=== PATIENT | male | born 1965 | race Caucasian/White ===

== ENCOUNTER → 2018-04-20 | Outpatient (CLI) | payer OTHER | LOC: COL.RAD 09:00 | DX: C25.2 Malignant neoplasm of tail of pancreas (principal); C78.7 Secondary malignant neoplasm of liver and intrahepatic bile duct; Z87.19 Personal history of other diseases of the digestive system ==

== ENCOUNTER 2018-04-23 14:26 | Inpatient (IN) | payer OTHER ==
[~2018-04-23] VITALS: Ht 188 cm; Wt 78.1 kg
[2018-04-23] VITALS (164 sets, daily range): BP systolic 84–137; BP diastolic 55–87; PULSE 75–95; TEMP 97.5–97.7; O2SAT 87–100
[2018-04-23 14:54] LABS: HEMOGLOBIN 12.7 g/dl (13.5-18.0); MEAN CELL VOLUME 80 fl (80.0-100.0); MEAN CORPUSCULAR HEMOGLOBIN 28 pg (27.0-31.0); MEAN CORPUSCULAR HGB CONC 35 g/dl (33.0-37.0); PLATELET COUNT 63 K/mm3 (130-400); RED BLOOD COUNT 4.55 M/mm3 (4.20-5.60)
[2018-04-23 15:05] LABS: ALANINE AMINOTRANSFERASE 548 U/L (21-72); ALBUMIN 2.7 gm/dL (3.5-5.0); ALKALINE PHOSPHATASE 415 U/L (50-136); ANION GAP 16 mmol/L (7-16); AST,SGOT 268 U/L (15-37); CALCIUM 8.1 mg/dL (8.4-10.2); CARBON DIOXIDE 15 mmol/L (22-30); CHLORIDE 100 mmol/L (98-107); GLUCOSE 166 mg/dL (74-106); MAGNESIUM 3.8 mg/dL (1.6-2.3); SODIUM 130 mmol/L (137-145); TOTAL PROTEIN 5.7 gm/dL (6.4-8.2)
[2018-04-23 15:07] LABS: HEMATOCRIT 36.3 % (42.0-52.0); LIPASE 27 U/L (23-300)
[2018-04-23 15:10] LABS: CREATININE, serum 3.67 mg/dL (0.66-1.25); INR 1.6 (0.8-3.0); PROTHROMBIN TIME 17.8 SECONDS (9.7-12.8)
[2018-04-23 15:12] LABS: BILIRUBIN,TOTAL 27.5 mg/dL (0.0-1.0)
[2018-04-23 15:13] LABS: BLOOD UREA NITROGEN 128 mg/dL (9-20); PHOSPHOROUS 11.9 mg/dL (2.5-4.5)
[2018-04-23 15:21] LABS: ANISOCYTOSIS 3+; BAND 13 % (0-10); LYMPHOCYTE 24 % (20.0-51.0); MICROCYTOSIS 2+; NEUTROPHILS 63 % (42.0-75.2); NUCLEATED RED BLOOD CELL 1 (0-6); TROPONIN-I < 0.012 ng/mL (0.000-0.034)
[2018-04-23 15:22] LABS: HYPOCHROMIA 2+; PLATELET ESTIMATE DECREASED (NORMAL); TARGET CELLS 2+
[2018-04-23] MEDS ORDERED: MEGACE 40MG40 MG/TAB PO (16:09)
[2018-04-23] MEDS ORDERED: LIORESAL 1010 MG/TAB PO (16:09)
[2018-04-23] MEDS ORDERED: ROXICODONE 55 MG/TAB PO (16:10)
[2018-04-23] MEDS ORDERED: MEGACE ORAL40 MG/ML PO (16:10)
[2018-04-23] MEDS ORDERED: NORCO 325 MG-51 TAB PO (16:11)
[2018-04-23] MEDS ORDERED: ZOFRAN8 MG PO (16:11)
[2018-04-23] MEDS ORDERED: ULTRAM 50MG TAB50 MG PO (16:12)
[2018-04-23] MEDS ORDERED: DECADRON 4MG TAB4 MG PO (16:12)
[2018-04-23] MEDS ORDERED: XANAX 0.5MG0.5 MG PO (16:12)
[2018-04-23] MEDS ORDERED: LOTENSIN20 MG PO (16:13)
[2018-04-23 17:54] LABS: ANION GAP 11 mmol/L (7-16); BLOOD UREA NITROGEN 118 mg/dL (9-20); CALCIUM 7.6 mg/dL (8.4-10.2); CHLORIDE 108 mmol/L (98-107); GLUCOSE 140 mg/dL (74-106); SODIUM 133 mmol/L (137-145)
[2018-04-23 17:57] LABS: COLLECTION METHOD CLEAN CATCH
[2018-04-23 17:59] LABS: CARBON DIOXIDE 14 mmol/L (22-30); CREATININE, serum 3.23 mg/dL (0.66-1.25); SALICYLATE < 1.0 mg/dL
[2018-04-23 18:00] LABS: POTASSIUM 6.8 mmol/L (3.4-5.0)
[2018-04-23 18:09] LABS: BUDDING YEAST Present /hpf; MUCOUS Present /lpf; PH 5 (5-8); SQUAMOUS EPITHELIAL 0-2 /hpf; URINE APPEARANCE Cloudy; URINE BACTERIA Rare /hpf; URINE BILIRUBIN Positive (NEGATIVE); URINE BLOOD 2+ (NEGATIVE); URINE COLOR Amber; URINE GLUCOSE 1+ (NEGATIVE); URINE KETONE Negative (NEGATIVE); URINE LEUKOCYTE ESTERASE Negative (NEGATIVE); URINE NITRATE Negative (NEGATIVE); URINE PROTEIN(semi-quant) 1+ (NEGATIVE); URINE UROBILINOGEN >=4.0 mg/dL (NEGATIVE)
[2018-04-23 18:11] LABS: TROPONIN-I < 0.012 ng/mL (0.000-0.034)
[2018-04-23 19:26] LABS: ARTERIAL BLD GAS O2 SATURATION 99.6 % (92-100); ARTERIAL BLD GAS TCO2 CT 13.3; ARTERIAL BLOOD GAS BASE EXCESS -12.9 (-2-2); ARTERIAL BLOOD GAS HCO3 12.4 meq/L (22-26); ARTERIAL BLOOD GAS PCO2 27.4 mmHg (35-45); ARTERIAL BLOOD GAS pH 7.28 (7.35-7.45)
[2018-04-23 21:44] LABS: ARTERIAL BLD GAS O2 SATURATION 99.1 % (92-100); ARTERIAL BLD GAS TCO2 CT 12.8; ARTERIAL BLOOD GAS BASE EXCESS -12.3 (-2-2); ARTERIAL BLOOD GAS pH 7.32 (7.35-7.45)
[2018-04-23 21:46] LABS: ARTERIAL BLOOD GAS PCO2 23.8 mmHg (35-45); ARTERIAL BLOOD GAS PO2 209.6 mmHg (80-100)
[2018-04-23 21:48] LABS: CALCIUM 7.1 mg/dL (8.4-10.2)
[2018-04-23 21:54] LABS: CREATININE, serum 3.29 mg/dL (0.66-1.25)
[2018-04-23 22:01] LABS: POTASSIUM 7.4 mmol/L (3.4-5.0)
[2018-04-24] VITALS (783 sets, daily range): BP systolic 73–109; BP diastolic 50–63; PULSE 87–101; TEMP 97.4–98; O2SAT 85–100
[2018-04-24 00:23] LABS: ARTERIAL BLD GAS O2 SATURATION 98.9 % (92-100); ARTERIAL BLD GAS TCO2 CT 16.2; ARTERIAL BLOOD GAS BASE EXCESS -8.3 (-2-2); ARTERIAL BLOOD GAS HCO3 15.4 meq/L (22-26); ARTERIAL BLOOD GAS PCO2 26.4 mmHg (35-45); ARTERIAL BLOOD GAS pH 7.38 (7.35-7.45)
[2018-04-24 00:24] LABS: ARTERIAL BLOOD GAS PO2 159.2 mmHg (80-100)
[2018-04-24 00:29] LABS: CALCIUM 6.8 mg/dL (8.4-10.2)
[2018-04-24 00:35] LABS: CREATININE, serum 3.31 mg/dL (0.66-1.25)
[2018-04-24 01:35] LABS: POTASSIUM 6.9 mmol/L (3.4-5.0)
[2018-04-24 04:04] LABS: ARTERIAL BLD GAS O2 SATURATION 98.3 % (92-100); ARTERIAL BLD GAS TCO2 CT 14.6; ARTERIAL BLOOD GAS BASE EXCESS -10.3 (-2-2); ARTERIAL BLOOD GAS HCO3 13.9 meq/L (22-26); ARTERIAL BLOOD GAS PCO2 25.5 mmHg (35-45); ARTERIAL BLOOD GAS pH 7.35 (7.35-7.45)
[2018-04-24 04:05] LABS: ARTERIAL BLOOD GAS PO2 131.1 mmHg (80-100)
[2018-04-24 06:33] LABS: MEAN CELL VOLUME 81 fl (80.0-100.0); MEAN CORPUSCULAR HGB CONC 35 g/dl (33.0-37.0); PLATELET COUNT 67 K/mm3 (130-400); RED BLOOD COUNT 3.49 M/mm3 (4.20-5.60); REDCELL DISTRIBUTION WIDTH-CV 16.6 % (11.5-14.5)
[2018-04-24 06:38] LABS: PROTHROMBIN TIME 22.5 SECONDS (9.7-12.8)
[2018-04-24 06:40] LABS: HEMATOCRIT 28.1 % (42.0-52.0); HEMOGLOBIN 9.8 g/dl (13.5-18.0); MEAN CORPUSCULAR HEMOGLOBIN 28 pg (27.0-31.0)
[2018-04-24 06:49] LABS: CALCIUM 6.1 mg/dL (8.4-10.2); TOTAL PROTEIN 4.4 gm/dL (6.4-8.2)
[2018-04-24 06:52] LABS: POTASSIUM 6.1 mmol/L (3.4-5.0)
[2018-04-24 06:59] LABS: BAND 7 % (0-10); NEUTROPHILS 87 % (42.0-75.2); PLATELET ESTIMATE DECREASED (NORMAL); TARGET CELLS 2+
[2018-04-24 07:05] LABS: ANISOCYTOSIS 1+; MICROCYTOSIS 1+
[2018-04-24 07:14] LABS: CREATININE, serum 3.92 mg/dL (0.66-1.25)
[2018-04-24 07:22] LABS: ARTERIAL BLD GAS O2 SATURATION 98.1 % (92-100); ARTERIAL BLD GAS TCO2 CT 15.3; ARTERIAL BLOOD GAS BASE EXCESS -9.4 (-2-2); ARTERIAL BLOOD GAS HCO3 14.5 meq/L (22-26); ARTERIAL BLOOD GAS PCO2 26.1 mmHg (35-45); ARTERIAL BLOOD GAS pH 7.36 (7.35-7.45)
[2018-04-24 10:08] LABS: CALCIUM 6.1 mg/dL (8.4-10.2)
[2018-04-24 10:22] LABS: CREATININE, serum 4.19 mg/dL (0.66-1.25); POTASSIUM 6.3 mmol/L (3.4-5.0)
[2018-04-25] VITALS (177 sets, daily range): O2SAT 58–94
== END 2018-04-25 09:25 | disposition expired | DRG 871 ==
LOC: COL.ER 14:26 → ICU 15:39
PROVIDERS: Emergency Medicine; Internal Medicine; Internal Medicine Pulmonary Disease
PROC: 0BH18EZ Insertion of Endotracheal Airway into Trachea, Via Natural or Artificial Opening Endoscopic (ICD-10-PCS; principal; 2018-04-23)
PROC: 5A1935Z Respiratory Ventilation, Less than 24 Consecutive Hours (ICD-10-PCS; 2018-04-23)
DX: A41.59 Other Gram-negative sepsis (principal); J96.01 Acute respiratory failure with hypoxia; R65.21 Severe sepsis with septic shock; C25.8 Malignant neoplasm of overlapping sites of pancreas; Z66 Do not resuscitate; C78.7 Secondary malignant neoplasm of liver and intrahepatic bile duct; N17.9 Acute kidney failure, unspecified; E87.1 Hypo-osmolality and hyponatremia; G93.49 Other encephalopathy; E87.2 Acidosis; R65.20 Severe sepsis without septic shock; E87.5 Hyperkalemia; D70.1 Agranulocytosis secondary to cancer chemotherapy; D69.6 Thrombocytopenia, unspecified; E83.39 Other disorders of phosphorus metabolism
CPT/HCPCS: J1447; J1815; J2060; J2250; J2270; J2543; J3010; J7030; J7060; J7070